=== PATIENT | female | born 1935 | race African-American/Black ===

== ENCOUNTER → 2018-09-16 | Emergency (ER) | payer MEDICARE, OTHER ==
[~2018-09-16] VITALS: Ht 160 cm; Wt 79.0 kg
[~2018-09-16] MED LIST: APAP650 PO; BAYER CHEWABLE81 MG PO; COD LIVER OIL1 EAC4 PO; COZAAR 50 MG TA50 M2 PO; CYMBALTA30 MG PO; KEFLEX500 M1 PO; MACROBID 100 M100 M1 PO; MICROZIDE12.5 MG PO; NEXIUM40 MG PO; NORVASC5 MG PO; PROMETHAZINE V473 ML PO; TESSALON PERLE100 MG PO; TOPROL XL25 MG PO; VITAMIN D3400 UNIT PO; ZANTAC 150MG T150 MG PO; ZPAK PO; [UNRECOGNIZED DRUG - MIXTURE]
[2018-09-16 11:41] LABS: ABSOLUTE BASOPHILS 0.1 thou/uL (0.0-0.2); ABSOLUTE EOSINOPHILS 0.3 thou/uL (0.0-0.7); ABSOLUTE LYMPHOCYTES 1.4 thou/uL (0.8-5.3); ABSOLUTE MONOCYTES 0.6 thou/uL (0.0-1.2); ABSOLUTE NEUTROPHILS 1.8 thou/uL (1.6-8.1); BASOPHILS 1.7 %; EOSINOPHILS 6.7 %; HEMATOCRIT 40.5 % (37.0-47.0); HEMOGLOBIN 13.3 gm/dL (12.0-15.0); LYMPHOCYTES 34.1 %; MCH 26.6 pg (26.0-34.0); MCHC 32.9 g/dL (28.0-37.0); MCV 80.9 fL (80.0-100.0); MONOCYTES 14.2 %; MPV 8.8 fl. (7.2-11.1); NUCLEATED RBCS 0 /100WBC; PLATELET COUNT* 203 thou/uL (150-400); POLYS 43.3 %; RDW-CV 14.8 % (10.5-14.5); WBC 4.1 thou/uL (4.0-11.0)
[2018-09-16 11:52] LABS: CALCIUM 9.2 mg/dL (8.5-10.1)
[2018-09-16 11:56] LABS: ALBUMIN 3.6 g/dL (3.4-5.0); TOTAL BILIRUBIN 0.7 mg/dL (<0.1-1.0); TOTAL PROTEIN 7.6 g/dL (6.4-8.2)
[2018-09-16 13:21] LABS: URINE BILIRUBIN NEGATIVE (Negative); URINE BLOOD NEGATIVE (Negative); URINE CLARITY CLEAR; URINE COLOR YELLOW; URINE GLUCOSE-RANDOM NEGATIVE (Negative); URINE KETONES NEGATIVE (Negative); URINE LEUKOCYTES-REFLEX TRACE (Negative); URINE NITRITE-REFLEX NEGATIVE (Negative); URINE PROTEIN NEGATIVE (Negative); URINE SPECIFIC GRAVITY <= 1.005 (1.005-1.030); URINE UROBILINOGEN 0.2 E.U./dl (0.2-1.0)
[2018-09-16 13:29] LABS: BACTERIA-REFLEX 1-9 Few /HPF (None Seen); CASTS None Seen /LPF (None Seen); CRYSTALS None Seen /LPF (None Seen); MUCUS None Seen strn/LPF (None Seen); SQUAMOUS 4-10 Moderate /LPF (0-3); URINE RBC 0-2 Rare /HPF (0-2); URINE WBC-REFLEX 0-5 Rare /HPF (0-5)
[2018-09-16 14:30] VITALS: BP 121/59
== END ==
LOC: M.ERS 10:58
PROVIDERS: Personal Emergency Response Attendant
DX: N39.0 Urinary tract infection, site not specified (principal); R53.1 Weakness; I10 Essential (primary) hypertension; E11.9 Type 2 diabetes mellitus without complications; E78.00 Pure hypercholesterolemia, unspecified; K21.9 Gastro-esophageal reflux disease without esophagitis; Z88.6 Allergy status to analgesic agent; Z88.1 Allergy status to other antibiotic agents; Z88.5 Allergy status to narcotic agent; Z88.8 Allergy status to other drugs, medicaments and biological substances

== ENCOUNTER 2018-10-27 20:58 | Emergency (ER) | payer MEDICARE, OTHER ==
[~2018-10-27] VITALS: Ht 167.6 cm; Wt 79.4 kg
[2018-10-27 21:40] LABS: ABSOLUTE BASOPHILS 0.1 thou/uL (0.0-0.2); ABSOLUTE EOSINOPHILS 0.1 thou/uL (0.0-0.7); ABSOLUTE LYMPHOCYTES 1.4 thou/uL (0.8-5.3); ABSOLUTE MONOCYTES 0.6 thou/uL (0.0-1.2); BASOPHILS 1.1 %; EOSINOPHILS 2.4 %; HEMATOCRIT 39.2 % (37.0-47.0); HEMOGLOBIN 12.7 gm/dL (12.0-15.0); LYMPHOCYTES 26.1 %; MCHC 32.5 g/dL (28.0-37.0); MCV 80.2 fL (80.0-100.0); MONOCYTES 12.3 %; MPV 8.7 fl. (7.2-11.1); NUCLEATED RBCS 0 /100WBC; PLATELET COUNT* 198 thou/uL (150-400); POLYS 58.1 %; RBC 4.89 mil/uL (4.20-5.00); RDW-CV 14.4 % (10.5-14.5); WBC 5.2 thou/uL (4.0-11.0)
[2018-10-27 21:48] LABS: ANION GAP 5 mmol/L (7-16); BUN 15 mg/dL (7-18); CALCIUM 9.6 mg/dL (8.5-10.1); CHLORIDE 103 mmol/L (98-107); CO2 31 mmol/L (21-32); CREATININE 1.1 mg/dL (0.6-1.3); GLUCOSE 108 mg/dL (70-99); POTASSIUM 4.1 mmol/L (3.5-5.1); SODIUM 139 mmol/L (136-145)
[2018-10-27 21:58] LABS: ALBUMIN 3.6 g/dL (3.4-5.0); ALKALINE PHOSPHATASE 46 U/L (46-116); LIPASE 177 U/L (73-393); NT-PRO BRAIN NAT PEPTIDE 49 pg/mL (<300); SGOT 30 U/L (15-37); SGPT 33 U/L (30-65); TOTAL BILIRUBIN 0.8 mg/dL (<0.1-1.0); TOTAL PROTEIN 7.7 g/dL (6.4-8.2); TROPONIN-I LEVEL <0.06 ng/mL (<0.06)
[2018-10-27 23:06] LABS: URINE BILIRUBIN NEGATIVE (Negative); URINE BLOOD NEGATIVE (Negative); URINE CLARITY CLEAR; URINE COLOR YELLOW; URINE GLUCOSE-RANDOM NEGATIVE (Negative); URINE KETONES NEGATIVE (Negative); URINE LEUKOCYTES-REFLEX 1+ (Negative); URINE NITRITE-REFLEX NEGATIVE (Negative); URINE PROTEIN NEGATIVE (Negative); URINE SPECIFIC GRAVITY <= 1.005 (1.005-1.030); URINE UROBILINOGEN 0.2 E.U./dl (0.2-1.0)
[2018-10-27] MEDS ORDERED: ACETAMINOPHEN-1 EAC1 PO (23:09)
[2018-10-27] MEDS ORDERED: XANAX 0.5 MG0.5 MG PO (23:09)
[2018-10-27 23:11] LABS: BACTERIA-REFLEX 1-9 Few /HPF (None Seen); CASTS None Seen /LPF (None Seen); CRYSTALS None Seen /LPF (None Seen); SQUAMOUS 0-3 Few /LPF (0-3); URINE RBC 0-2 Rare /HPF (0-2); URINE WBC-REFLEX 0-5 Rare /HPF (0-5)
[2018-10-27 23:22] VITALS: BP 146/65
--- NOTE | 2018-10-29 13:47 | EKG ---
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: [place] : 1935 Requested By: Dipti Pena Order Number: [id number] MD: Dario Peguero Measurements Intervals [place] Rate: 75 P: 30 WV: 208 QRS: -31 QRSD: 92 T: 62 QT: 409 QTc: 457 Interpretive Statements Sinus rhythm Abnormal R-wave progression, 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
== END 2018-10-27 23:25 | disposition home or self-care (01) ==
LOC: M.ERS 20:58
PROVIDERS: Physician Assistant
DX: F41.9 Anxiety disorder, unspecified (principal); R52 Pain, unspecified; I10 Essential (primary) hypertension; E78.00 Pure hypercholesterolemia, unspecified; E11.9 Type 2 diabetes mellitus without complications; K21.9 Gastro-esophageal reflux disease without esophagitis; Z88.6 Allergy status to analgesic agent; Z88.5 Allergy status to narcotic agent; Z88.1 Allergy status to other antibiotic agents; Z88.8 Allergy status to other drugs, medicaments and biological substances